=== PATIENT | female | born 1980 | race Caucasian/White ===

== ENCOUNTER 2025-01-04 00:58 | Emergency (ER) | payer OTHER, SELFPAY ==
[2025-01-04 00:59] VITALS: BP 115/55; PULSE 88; RESP 20; TEMP 36.2; O2SAT 100
--- NOTE | 2025-01-04 01:21 | ED.UPPEXIN ---
HPI - Extremity Injury (Upper) General Chief Complaint: Extremity Injury, Upper Stated Complaint: skin issue Time Seen by Provider: 01/04/25 01:15 Source: patient Mode of arrival: ambulatory Limitations: no limitations History of Present Illness HPI narrative: Patient developed pain at the back of the left elbow 3 months ago after lifting heavy object out of her truck. Got better in few weeks, yesterday did some physical work triggered the pain again at the left elbow and left forearm. She denies numbness or tingling or weakness. Related Data Allergies Allergy/AdvReac Type Severity Reaction Status Date / Time No Known Allergies Allergy Verified 01/04/25 01:23 Review of Systems Review of Systems: All systems reviewed & are unremarkable except as noted in HPI and below Exam Narrative: General appearance: Well-developed, well-nourished Skin: Normal color Head: Normocephalic, nontraumatic Eyes: Clear conjunctiva ENT: Oropharynx normal, ears normal, nose normal Neck: Supple, nontender Chest and respiratory: Airway patent, no respiratory distress, no accessory muscle use Heart: Regular rate/rhythm Abdomen: Soft, nontender, no organomegaly, quiet bowel sounds Vascular: Normal peripheral pulses, normal capillary refill. Musculoskeletal: Left upper extremity exam showed no swelling, no bruises, no rash, no deformity, no localized tenderness Neurologic: Alert and oriented ?3, [employer] is normal as tested, no gross motor deficit Course Vital Signs Vital signs: Vital Signs Temperature 36.2 C L 01/04/25 00:59 Pulse Rate 88 01/04/25 00:59 Respiratory Rate 20 01/04/25 00:59 Blood Pressure 115/55 L 01/04/25 00:59 Pulse Oximetry 100 01/04/25 00:59 Oxygen Delivery Room Air 01/04/25 00:59 Temperature 36.2 C L 01/04/25 00:59 Pulse Rate 88 01/04/25 00:59 Respiratory Rate 20 01/04/25 00:59 Blood Pressure 115/55 L 01/04/25 00:59 Pulse Oximetry 100 01/04/25 00:59 Oxygen Delivery Room Air 01/04/25 00:59 MDM - Extremity Injury (Upper) MDM Narrative Medical decision making narrative: Left elbow/forearm sprain/strain, versus tendinitis Differential Diagnosis Differential diagnosis: Likely other (As above) Critical Care Time Critical Care Time Critical Care Time: No Discharge Plan Discharge Clinical Impression: Other sprain of left elbow, initial encounter Patient Disposition: Home Condition: Stable Instructions: Elbow Sprain (ED) Additional Instructions: Return if symptoms are worsening , call your family physician, orthopedic for appointment, take Tylenol as as needed for aches and pain, continue home medications. Patient Language: Mongolian Prescriptions: New diclofenac sodium 75 mg tablet,delayed release (DR/EC) 75 mg PO BID PRN (Reason: pain) Qty: 14 0RF Follow-up/Referrals: Suraj Dominguez MD [Physician, Orthopedics] - 01/09/25 UNKNOWN,DOCTOR [Primary Care Provider]
[2025-01-04] MEDS: IBUPROFEN 400 MG TABLET 800 MG PO (01:29)
[2025-01-04] MEDS: HYDROcodone/acetaminophen (*CRX) 5-325 MG TABLET 1 TAB PO (01:30)
[2025-01-04 01:40] VITALS: BP 118/62; PULSE 82; RESP 18; O2SAT 97
== END 2025-01-04 01:40 | disposition home or self-care (01) ==
PROVIDERS: Emergency Provider Emergency Medicine
DX: S53.402A Unspecified sprain of left elbow, initial encounter (principal); X50.0XXA Overexertion from strenuous movement or load, initial encounter
CPT/HCPCS: 99283; A9270